=== PATIENT | female | born 1930 | race Caucasian/White ===

== ENCOUNTER 2019-12-13 01:06 | Observation (INO) ==
[2019-12-13 01:34] LABS: Basophils % 0.4 % (0.0-0.8); Eosinophils # 0.1 10*3/uL (0.0-0.87); Eosinophils % 0.9 % (0.00-10.9); Hematocrit 35.1 VOL% (35.7-47.0); Hemoglobin 12.2 GM/DL (12.0-16.0); Immature Granulocytes % 0.5 %; Immature Granulocytes Absolute 0.06 #; Lymphocytes # 1.9 10*3/uL (1.4-4.0); Lymphocytes % 16.9 % (21.3-54.2); Mean Corpuscular HGB Conc 34.8 GM/DL (32-36); Mean Corpuscular Volume 91.9 FL (87-102); Mean Platelet Volume 10.6 FL (9.6-12.0); Monocytes % 8.5 % (1.7-12.7); Neutrophils % 72.8 % (38.7-73.9); Platelet Count 189 T/CUMM (130-400); Red Blood Count 3.82 MC/CUMM (3.8-5.5); Red Cell Distribution Width 13.9 % (9.3-17.3); White Blood Count 11.4 T/CUMM (4-12)
[2019-12-13] MEDS ORDERED: ONDANSETRON 4 MG/2 ML VIAL IV STA (01:41)
[2019-12-13] MEDS ORDERED: ASPIRIN 325 MG TABLET PO STA (01:41)
[2019-12-13] MEDS ORDERED: MORPHINE 4 MG/1 ML VIAL IV STA (01:41)
[2019-12-13] MEDS ORDERED: NITROGLYCERIN 2% OINT 1 INCH/GM PACK TOP STA (01:41)
[2019-12-13 01:59] LABS: Albumin 3.7 G/DL (3.4-5.0); Bilirubin,Total 1.5 MG/DL (0.2-1.0); Calcium 9.1 MG/DL (8.5-10.1); INR 1.1; Osmolality,Calculated 255.2 MOS/KG (273-304); PT Patient Result 11.9 SECS (9.8-11.9); Total Protein 7.3 G/DL (6.4-8.3)
[2019-12-13] MEDS ORDERED: MAGNESIUM SULF RIDER 2 GM in PREMIX 1 EACH IV STA (02:13)
[2019-12-13] MEDS ORDERED: cloNIDine 0.1 MG TABLET PO STA ×2 (02:15→03:24)
[2019-12-13] MEDS ORDERED: cloNIDine 0.1 MG TABLET ONE (02:18)
[2019-12-13 03:53] LABS: Bilirubin,Urine Negative (Negative); Blood, Urine Negative (Negative); Glucose,Urine (UA) Negative (Negative); Hyaline Casts,Urine 4 /LPF (0-3); Ketones,Urine Negative (Negative); Mucus,Urine Occasional /LPF (Occasional); Nitrite,Urine Negative (Negative); Protein,Urine Negative; RBC,Urine 2 /HPF (0-4); Squamous Epithelial Cell,Urine Occasional /HPF (0-10); Urine Appearance CLEAR (Clear); Urine Color Yellow (Yellow); Urine Specific Gravity 1.011 (1.001-1.035); Urine Urobilinogen < 2.0 EU/DL (0.2-1.0); WBC,Urine 4 /HPF (0-6)
[2019-12-13] MEDS ORDERED: DEXTROSE 50% 25 GM/50 ML VIAL IV PRN (04:13)
[2019-12-13] MEDS ORDERED: MORPHINE 4 MG/1 ML VIAL IV PRN (04:13)
[2019-12-13] MEDS ORDERED: GLUCAGON 1 MG VIAL IM PRN (04:13)
[2019-12-13] MEDS ORDERED: MAGNESIUM SULF RIDER 2 GM in PREMIX 1 EACH IV PRN (04:17)
[2019-12-13] MEDS ORDERED: MAGNESIUM SULF RIDER 4 GM in PREMIX 1 EACH IV PRN (04:17)
[2019-12-13] MEDS ORDERED: DEXTROSE 50% 25 GM/50 ML SYRINGE IV PRN (04:22)
[2019-12-13] MEDS: NITROGLYCERIN 2% OINT 1 INCH/GM PACK TOP SCH ×3 (06:17→17:55)
[2019-12-13] MEDS: PANTOPRAZOLE 40 MG TABLET PO SCH (09:29)
[2019-12-13] MEDS: FUROSEMIDE 40 MG/4 ML VIAL IV SCH ×2 (09:30→15:32)
[2019-12-13] MEDS ORDERED: INFLUENZA VIRUS VACCINE 0.5 ML SYRINGE IM ONE (11:47)
[2019-12-13] MEDS: APIXABAN 2.5 MG TABLET PO SCH (21:40)
[2019-12-13] MEDS: carvediloL 12.5 MG TABLET PO SCH (21:40)
[2019-12-13] MEDS: FLUTICASONE 50 MCG NASAL SPRAY 16 GM BOTTLE BOTH NARES SCH (22:58)
[2019-12-13] MEDS: POTASSIUM CHLORIDE 20 MEQ TABLET PO PRN (22:58)
[2019-12-14] MEDS: POTASSIUM CHLORIDE 20 MEQ TABLET PO PRN ×3 (00:52→05:21)
[2019-12-14] MEDS: NITROGLYCERIN 2% OINT 1 INCH/GM PACK TOP SCH ×3 (00:52→13:17)
[2019-12-14 05:30] LABS: Calcium 8.4 MG/DL (8.5-10.1); Osmolality,Calculated 259.8 MOS/KG (273-304)
[2019-12-14] MEDS ORDERED: LEVOTHYROXINE 75 MCG TABLET PO SCH (06:30)
[2019-12-14] MEDS: APIXABAN 2.5 MG TABLET PO SCH (08:59)
[2019-12-14] MEDS: carvediloL 12.5 MG TABLET PO SCH (08:59)
[2019-12-14] MEDS: PANTOPRAZOLE 40 MG TABLET PO SCH (08:59)
[2019-12-14] MEDS ORDERED: MAGNESIUM OXIDE 400 MG TABLET PO SCH (09:00)
[2019-12-14] MEDS ORDERED: [UNRECOGNIZED DRUG - OTHER] PO SCH (09:00)
[2019-12-14] MEDS: FLUTICASONE 50 MCG NASAL SPRAY 16 GM BOTTLE BOTH NARES SCH (09:00)
[2019-12-14 12:26] VITALS: BP 142/64
== END 2019-12-14 14:20 | disposition home health service (06) ==
LOC: N.ED 01:06 → N.EDINP 01:06 → N.TELES 05:40
PROVIDERS: ADMIT Family Medicine; ATTEND Family Medicine